=== PATIENT | female | born 1940 | race Asian ===

== ENCOUNTER 2017-03-16 12:59 | Emergency (ER) | payer MEDICARE, OTHER ==
[2017-03-16 14:18] LABS: PLATELET COUNT 143 x10^3mcL (130-400)
[2017-03-16 14:19] LABS: BASOPHIL % 0.7 % (0-2)
[2017-03-16 14:20] LABS: RED CELL DISTRIBUTION WIDTH 16.3 % (11.5-14.5)
[2017-03-16 14:23] LABS: CALCIUM 8.8 mg/dL (8.5-10.1); CARBON DIOXIDE 28.2 mmol/L (21-32); CHLORIDE SERUM 109 mmol/L (98-107); CREATININE SERUM 0.7 mg/dL (0.6-1.0); GLUCOSE SERUM 131 mg/dL (74-106); POTASSIUM SERUM 3.8 mmol/L (3.5-5.1); SODIUM SERUM 141 mmol/L (136-145)
[2017-03-16 14:41] LABS: ALKALINE PHOSPHATASE 139 U/L (46-116); ALT/SGPT 44 U/L (14-59); AST/SGOT 53 U/L (15-37); BILIRUBIN TOTAL 0.55 mg/dL (0.20-1.00)
[2017-03-16 14:42] LABS: ALBUMIN 3.3 g/dL (3.4-5.0)
[2017-03-16 14:43] LABS: microscopic required? NO
[2017-03-16 14:43] LABS: T3 TOTAL 1.07 ng/mL
[2017-03-16 14:53] LABS: C REACTIVE PROTEIN < 0.2 mg/dL (<=0.9)
[2017-03-16 14:55] LABS: FREE T4 1.38 ng/dL (0.76-1.46); FREE THYROXINE INDEX 4.6 ug/dL (1.4-4.5); T4(THYROXINE) 12.8 ug/dL (4.7-13.3)
[2017-03-16 14:59] LABS: CK-MB 2.3 ng/mL (0-3.6)
[2017-03-16 15:18] LABS: urine erythrocyte NEGATIVE (NEGATIVE)
[2017-03-16 15:31] LABS: ERYTHROCYTE SED RATE 13 mm/hr (0-30)
[2017-03-16 16:17] VITALS: BP 139/60
== END 2017-03-16 16:17 | disposition home or self-care (01) ==
LOC: ED 12:59
PROVIDERS: Specialist
DX: E16.2 Hypoglycemia, unspecified (principal); E11.9 Type 2 diabetes mellitus without complications; I10 Essential (primary) hypertension; Z79.84 Long term (current) use of oral hypoglycemic drugs
CPT/HCPCS: 36600; 82962; 83880; 84439; Q0092

== ENCOUNTER 2018-04-16 10:01 | Inpatient (IN) | payer OTHER, MEDICARE ==
[~2018-04-16] VITALS: Ht 149.9 cm; Wt 54.4 kg
[2018-04-16 10:18] VITALS: Ht 149.9 cm; Wt 54.4 kg
[2018-04-16 13:26] LABS: BASOPHIL % 0.3 % (0-2); PLATELET COUNT 172 x10^3mcL (130-400)
[2018-04-16 13:49] LABS: CALCIUM 8.4 mg/dL (8.5-10.1); CARBON DIOXIDE 28.5 mmol/L (21-32); CHLORIDE SERUM 106 mmol/L (98-107); CREATININE SERUM 0.8 mg/dL (0.6-1.0); GLUCOSE SERUM 134 mg/dL (74-106); POTASSIUM SERUM 3.6 mmol/L (3.5-5.1); SODIUM SERUM 141 mmol/L (136-145)
[2018-04-16 13:50] LABS: microscopic required? YES; urine erythrocyte TRACE (NEGATIVE)
[2018-04-16 13:54] LABS: ALBUMIN 3.4 g/dL (3.4-5.0); ALKALINE PHOSPHATASE 160 U/L (46-116); ALT/SGPT 21 U/L (14-59); AST/SGOT 22 U/L (15-37); BILIRUBIN TOTAL 0.68 mg/dL (0.20-1.00); TOTAL PROTEIN, SERUM 6.9 g/dL (6.4-8.2)
[2018-04-16 13:59] LABS: AMPHETAMINE QUAL UR NONE DETECTED (See below)
[2018-04-16 14:29] LABS: T3 TOTAL 0.9 ng/mL
[2018-04-16 14:37] LABS: MAGNESIUM 2.1 mg/dL (1.8-2.4); PHOSPHOROUS 2.9 mg/dL (2.5-4.9)
[2018-04-16 14:39] LABS: CHOLESTEROL/HDL RATIO 3.9
[2018-04-16 15:09] LABS: FREE T4 1.41 ng/dL (0.76-1.46); FREE THYROXINE INDEX 4.2 ug/dL (1.4-4.5)
[2018-04-16 15:41] VITALS: BP 154/86
[2018-04-16 20:40] VITALS: BP 139/47
[2018-04-17] MEDS ORDERED: SENNA8.6 M2 PO (01:23)
[2018-04-17] MEDS ORDERED: ASPIR 8181 MG PO (01:25)
[2018-04-17] MEDS ORDERED: LOSARTAN POTAS100 M1 PO (01:26)
[2018-04-17] MEDS ORDERED: METOPROLOL TART50 MG PO (01:27)
[2018-04-17] MEDS ORDERED: ADALAT CC30 MG PO (01:28)
[2018-04-17] MEDS ORDERED: FARXIGA10 MG PO (01:29)
[2018-04-17] MEDS ORDERED: JANUVIA100 M1 PO (01:30)
[2018-04-17] MEDS ORDERED: NATURAL IRON65 MG PO (01:33)
[2018-04-17] MEDS ORDERED: NAPROSYN500 MG PO (01:34)
[2018-04-17] MEDS ORDERED: VITAMIN D50000 I4 PO (01:39)
[2018-04-17] MEDS ORDERED: LASIX20 MG PO (01:40)
[2018-04-17] MEDS ORDERED: NATURE'S BLEND500 M3 PO (01:44)
[2018-04-17] MEDS ORDERED: OYSTER SHELL C500 M2 PO (01:49)
[2018-04-17] MEDS ORDERED: XANAX0.5 MG PO (01:53)
[2018-04-17 05:52] VITALS: BP 136/49
[2018-04-17 06:49] LABS: CALCIUM 7.9 mg/dL (8.5-10.1); CHLORIDE SERUM 110 mmol/L (98-107); CREATININE SERUM 0.7 mg/dL (0.6-1.0); GLUCOSE SERUM 97 mg/dL (74-106); PHOSPHOROUS 3.6 mg/dL (2.5-4.9); POTASSIUM SERUM 3.6 mmol/L (3.5-5.1); SODIUM SERUM 142 mmol/L (136-145)
[2018-04-17 06:54] LABS: BASOPHIL % 1.5 % (0-2); RED CELL DISTRIBUTION WIDTH 14.1 % (11.5-14.5)
[2018-04-17 07:07] LABS: PLATELET COUNT 115 x10^3mcL (130-400)
[2018-04-17 10:21] VITALS: BP 158/55
[2018-04-17 16:32] VITALS: BP 178/59
[2018-04-17 17:40] VITALS: BP 147/55
[2018-04-17 21:13] VITALS: BP 123/82
[2018-04-18 05:25] VITALS: BP 136/52
[2018-04-18 06:57] LABS: RED CELL DISTRIBUTION WIDTH 13.9 % (11.5-14.5)
[2018-04-18 07:15] LABS: CALCIUM 8.5 mg/dL (8.5-10.1); CARBON DIOXIDE 24.9 mmol/L (21-32); CHLORIDE SERUM 106 mmol/L (98-107); CREATININE SERUM 0.7 mg/dL (0.6-1.0); GLUCOSE SERUM 85 mg/dL (74-106); MAGNESIUM 1.9 mg/dL (1.8-2.4); PHOSPHOROUS 3.6 mg/dL (2.5-4.9); POTASSIUM SERUM 3.4 mmol/L (3.5-5.1); SODIUM SERUM 142 mmol/L (136-145)
[2018-04-18 08:00] VITALS: BP 143/52
[2018-04-18 08:44] LABS: PLATELET COUNT 117 x10^3mcL (130-400)
[2018-04-18] MEDS ORDERED: ACETAMINOPHEN-H1 TA1 PO (10:49)
[2018-04-18 14:04] VITALS: BP 137/60
[2018-04-18 15:38] VITALS: BP 137/60
== END 2018-04-18 16:22 | disposition home health service (06) | DRG 340 ==
LOC: ED 10:01 → MU 13:32
PROVIDERS: Emergency Medicine; ADMIT Internal Medicine
DX: S72.112A Displaced fracture of greater trochanter of left femur, initial encounter for closed fracture (principal); N17.0 Acute kidney failure with tubular necrosis; I50.9 Heart failure, unspecified; E11.65 Type 2 diabetes mellitus with hyperglycemia; W18.39XA Other fall on same level, initial encounter; Y93.01 Activity, walking, marching and hiking; G89.29 Other chronic pain; Z96.641 Presence of right artificial hip joint; E83.51 Hypocalcemia; I11.0 Hypertensive heart disease with heart failure; F41.1 Generalized anxiety disorder; Y92.098 Other place in other non-institutional residence as the place of occurrence of the external cause; Y99.8 Other external cause status; Z99.3 Dependence on wheelchair; Z79.899 Other long term (current) drug therapy
CPT/HCPCS: 82962; 83880; 84439; 97110-GP; 97116-GP; 97530-GP; J2270; J2405; J7030; Q0092